=== PATIENT | female | born 1995 | race Caucasian/White ===

== ENCOUNTER 2019-06-23 10:56 | Emergency (ER) | payer BC ==
[2019-06-23 12:26] VITALS: BP 114/81
--- NOTE | 2019-06-23 13:27 | UC ---
UC General HPI - HPI Summary HPI Summary: pain of groin and axilla x 10 days pain is dull 5 out 10 , no radiation worse with activity , better with rest and ibuprofen concern about enlarged lymphnodes denies any fever, no chills, no weight loss or fatigue no vaginal discharge , no dysuria - History of Current Complaint Chief Complaint: UCGeneralIllness Stated Complaint: GROIN ISSUE Time Seen by Provider: 06/23/19 13:06 Hx Obtained From: Patient Hx Last Menstrual Period: 05/24/19 Onset/Duration: Gradual Onset, Lasting Days - 10, Still Present Timing: Constant Onset Severity: Moderate Current Severity: Moderate Pain Intensity: 5 Pain Location at: bilateral axilla and inguinal area Pain Radiates to: none Character: dull Aggravating: activities Alleviating: rest/ ibuprofen Associated Signs & Symptoms: Negative: Abdominal Pain, Back Pain - Allergy/Home Medications Allergies/Adverse Reactions: Allergies Allergy/AdvReac Type Severity Reaction Status Date / Time erythromycin base Allergy Hives Verified 06/23/19 12:20 Penicillins Allergy Hives Verified 06/23/19 12:20 Home Medications: Home Medications Doxycycline Hyclate 50 mg Cap [Doxycycline Hyclate] 1 cap BID 06/23/19 [History Confirmed 06/23/19] PMH/Surg Hx/FS Hx/Imm Hx Previously Healthy: Yes - Surgical History Surgical History: Yes Surgery Procedure, Year, and Place: Tonsilectomy - Family History Known Family History: Negative: Blood Disorder - Social History Alcohol Use: None Substance Use Type: None Smoking Status (MU): Never Smoked Tobacco Review of Systems All Other Systems Reviewed And Are Negative: Yes Is Patient Immunocompromised?: No Physical Exam Triage Information Reviewed: Yes Appearance: Well-Appearing, No Pain Distress, Well-Nourished Vital Signs: Initial Vital Signs Temp 98.5 F 06/23/19 12:21 Pulse 94 06/23/19 12:21 Resp 16 06/23/19 12:21 BP 114/81 06/23/19 12:21 Pulse Ox 100 06/23/19 12:21 Vital Signs Reviewed: Yes Eye Exam: Normal Eyes: Positive: Conjunctiva Clear ENT: Positive: Normal ENT inspection, Hearing grossly normal, Pharynx normal Neck exam: Normal Neck: Positive: Supple, Nontender, No Lymphadenopathy Respiratory: Positive: Chest non-tender, Lungs clear, Normal breath sounds Cardiovascular: Positive: RRR, No Murmur, Pulses Normal Abdominal Exam: Normal Abdomen Description: Positive: Nontender, Soft. Negative: CVA Tenderness (R), CVA Tenderness (L), Distended, Guarding Bowel Sounds: Negative: Present Musculoskeletal Exam: Normal - Additional Comments mild tenderness of the inguinal area no abnormal lymph nodes noted no lymphadenopathy of axilla / cervical , supraclavicular Course/Dx - Diagnoses Provider Diagnosis: Pain in the groin Discharge ED - Sign-Out/Discharge Documenting (check all that apply): Patient Departure All imaging exams completed and their final reports reviewed: No Studies - Discharge Plan Condition: Stable Disposition: HOME Patient Education Materials: Groin Pain (ED) Referrals: Juliana Cota PA [Primary Care Provider] - 2 Weeks Additional Instructions: cannot appreciate any enlarged lymph nodes of the axilla or inguinal area will check cbc / cmp please call the office in 2 days for the lab results - Billing Disposition and Condition Condition: STABLE Disposition: Home
[2019-06-23 18:52] LABS: ABS Eosinophils 0.2 10^3/ul (0-0.6); ABS Lymphocytes 2.1 10^3/ul (1.0-4.8); ABS Monocytes 0.5 10^3/ul (0-0.8); ABS Neutrophils 3.1 10^3/ul (1.5-7.7); Eosinophil % 2.7 %; Hematocrit 39 % (35-47); Hemoglobin 13.8 g/dL (12.0-16.0); Lymphocyte % 35.5 %; Mean Corpuscular HGB Conc 35 g/dL (31-36); Mean Corpuscular Hemoglobin 31 pg (27-31); Mean Corpuscular Volume 88 fL (80-97); Mean Platelet Volume 8.1 fL (7.4-10.4); Nucleated Red Blood Cells % 0.1; Platelet Count 277 10^3/uL (150-450); Red Blood Count 4.46 10^6 /uL (3.70-4.87); Red Cell Distribution Width 13 % (10-15); White Blood Count 5.8 10^3/uL (3.5-10.8)
[2019-06-23 18:55] LABS: Albumin 4.9 g/dL (3.2-5.2); Calcium 9.9 mg/dL (8.6-10.3); Potassium 4.1 mmol/L (3.5-5.0); Total Bilirubin 0.4 mg/dL (0.2-1.0)
[2019-06-23 19:01] LABS: Albumin/Globulin Ratio 2.3 (1-3); BUN/Creatinine Ratio 17.9 (8-20); EGFR African American 129.8 (>60); EGFR Non-African American 107.2 (>60); Globulin 2.1 g/dL (2-4)
--- NOTE | 2019-06-24 07:22 | UC ---
- Progress Note Progress Note: Please call to advise that her lab work is normal: normal white count and chemistries. She was seen for enlarged lymph nodes and treated with doxycycline. If nodes remain enlarged after several more weeks (2-3) she should follow up with her primary care physician. Course/Dx - Diagnoses Provider Diagnoses: Pain in the groin Discharge ED - Sign-Out/Discharge Documenting (check all that apply): Post-Discharge Follow Up All imaging exams completed and their final reports reviewed: No Studies - Discharge Plan Condition: Stable Disposition: HOME Patient Education Materials: Groin Pain (ED) Referrals: Juliana Cota PA [Primary Care Provider] - 2 Weeks Additional Instructions: cannot appreciate any enlarged lymph nodes of the axilla or inguinal area will check cbc / cmp please call the office in 2 days for the lab results - Billing Disposition and Condition Condition: STABLE Disposition: Home
== END 2019-06-23 13:38 | disposition home or self-care (01) ==
LOC: UCCORT 10:56
DX: R10.30 Lower abdominal pain, unspecified (principal); Z88.0 Allergy status to penicillin; Z88.1 Allergy status to other antibiotic agents
CPT/HCPCS: 36415; 80053; 85025; 99211; G0463